=== PATIENT | female | born 1970 ===

== ENCOUNTER 2020-09-19 06:40 | Day surgery (SDC) | payer OTHER ==
[~2020-09-19 06:40] MED LIST: AMBIEN10 MG PO; BISOPROLOL FUMAR5 MG PO; CLONAZEPAM0.5 MG PO; FLUOXETINE HCL40 MG PO; HYDRODIURIL12.5 MG PO; METFORMIN HCL750 MG PO; NABUMETONE750 MG PO; PAMELOR25 MG PO; PRILOSEC10 MG PO; SIMVASTATIN20 MG PO; STEGLATRO15 MG PO
[2020-09-19] MEDS ORDERED: PERCOCET 5-3251 EACH PO (12:01)
== END 2020-09-19 15:50 | disposition home or self-care (01) ==
LOC: CIR.AMB 06:40
PROVIDERS: ATTEND Obstetrics & Gynecology
DX: N81.12 Cystocele, lateral (principal); Z20.828 Contact with and (suspected) exposure to other viral communicable diseases